=== PATIENT | male | born 1965 | race Caucasian/White ===

== ENCOUNTER 2016-12-01 14:20 | Emergency (ER) | payer SELFPAY | END 2016-12-01 15:36 | disposition home or self-care (01) | LOC: ER 14:20 | DX: J44.0 Chronic obstructive pulmonary disease with (acute) lower respiratory infection (principal); J20.9 Acute bronchitis, unspecified; F17.210 Nicotine dependence, cigarettes, uncomplicated | CPT/HCPCS: 87502; 87651 ==

== ENCOUNTER 2016-12-27 18:20 | Emergency (ER) | payer SELFPAY | END 2016-12-27 18:45 | disposition left against medical advice (07) | LOC: ER 18:20 | DX: Z53.21 Procedure and treatment not carried out due to patient leaving prior to being seen by health care provider (principal) ==

== ENCOUNTER 2016-12-28 06:49 | Emergency (ER) | payer SELFPAY | END 2016-12-28 07:32 | disposition home or self-care (01) | LOC: ER 06:49 | DX: J20.9 Acute bronchitis, unspecified (principal); F17.210 Nicotine dependence, cigarettes, uncomplicated ==